=== PATIENT | male | born 1950 | race Two or more races ===

== ENCOUNTER 2019-07-01 14:07 | Emergency (ER) | payer MEDICARE, OTHER ==
[~2019-07-01] VITALS: Ht 177.8 cm; Wt 99.8 kg
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
--- NOTE | 2019-07-01 14:20 | NUR ---
SEEN AND EXAMINED BY .
--- NOTE | 2019-07-01 14:25 | NUR ---
IV LINE ESTABLISHED BLOOD DRAWN AND SENT TO LAB.
[2019-07-01 14:34] LABS: BASOPHILS # (AUTO) 0.1 /CMM (0.0-0.2); BASOPHILS % (AUTO) 0.7 % (0.0-2.0); EOSINOPHILS % (AUTO) 1.6 % (0.0-6.0); HEMATOCRIT 38 % (39-51); HEMOGLOBIN 12.6 g/dL (13.5-17.5); LYMPHOCYTES # (AUTO) 3.1 /CMM (0.8-4.8); LYMPHOCYTES % (AUTO) 31.1 % (20.0-44.0); MEAN CORPUSCULAR HGB CONC 33 g/dl (31.0-36.0); MEAN CORPUSCULAR VOLUME 83 fL (80-96); MONOCYTES # (AUTO) 0.9 /CMM (0.1-1.30); MONOCYTES % (AUTO) 9.4 % (2.0-12.0); NEUTROPHILS # (AUTO) 5.7 /CMM (1.8-8.9); NEUTROPHILS % (AUTO) 57.2 % (43.0-81.0); PLATELET COUNT (AUTO) 258 /CMM (150-450); RED BLOOD CELL COUNT(AUTO) 4.58 MIL/uL (4.5-6.0)
[2019-07-01] MEDS ORDERED: FENTANYL PF 100MCG/2ML AMPUL ONE (14:43)
[2019-07-01] MEDS ORDERED: ONDANSETRON HCL/PF 4 MG/2 ML VIAL ONE (14:43)
[2019-07-01 14:44] LABS: CALCIUM, SERUM 9.3 mg/dL (8.5-10.1); CARBON DIOXIDE 31 mmol/L (21-32); CHLORIDE 100 mmol/L (98-107); CREATININE 1.1 mg/dL (0.6-1.3); GLUCOSE 146 mg/dL (74-106); POTASSIUM 3.4 mmol/L (3.5-5.1); SODIUM SERUM 141 mmol/L (136-145); UREA NITROGEN, BLOOD 14 mg/dL (7-18)
--- NOTE | 2019-07-01 14:45 | NUR ---
[employer] AT BEDSIDE.
[2019-07-01 14:50] LABS: ALANINE AMINOTRANSFERASE 30 U/L (12-78); ALBUMIN 4.1 g/dL (3.4-5.0); ALKALINE PHOSPHATASE 77 U/L (46-116); ASPARTATE AMINOTRANSFERASE 20 U/L (15-37); BILIRUBIN,TOTAL 0.8 mg/dL (0.2-1.0); LIPASE 166 U/L (73-393); TOTAL PROTEIN, SERUM 7.9 g/dL (6.4-8.2)
[2019-07-01] MEDS ORDERED: IV NS 0.9% 250 ML IV ONE (14:55)
[2019-07-01] MEDS ORDERED: IOHEXOL-300 100 ML VIAL IV ONE (14:55)
[2019-07-01] MEDS ORDERED: CT SWABBABLE VALVE TRANS SET 1 EA INFUS.SET MC ONE (14:55)
[2019-07-01] MEDS ORDERED: ONDANSETRON HCL/PF - ER 4 MG/2 ML VIAL IV ONE (15:00)
[2019-07-01] MEDS ORDERED: FENTANYL PF 100MCG/2ML AMPUL IV ONE (15:00)
--- NOTE | 2019-07-01 15:05 | NUR ---
PT IS WHEELED TO CT SCAN VIA [facility].
[2019-07-01] MEDS ORDERED: CLOP75TA15 PO (15:23)
[2019-07-01] MEDS ORDERED: FERR325T23 PO (15:23)
[2019-07-01] MEDS ORDERED: FAMO-131 PO (15:23)
[2019-07-01] MEDS ORDERED: IRBE300T19 PO (15:23)
[2019-07-01] MEDS ORDERED: ICOS1CAP PO (15:23)
[2019-07-01] MEDS ORDERED: ASPI-992 PO (15:23)
[2019-07-01] MEDS ORDERED: SERT50TA12 PO (15:23)
[2019-07-01] MEDS ORDERED: POTA15TA11 PO (15:23)
[2019-07-01] MEDS ORDERED: DULA1.5P SQ (15:23)
[2019-07-01] MEDS ORDERED: EMPA25TA PO (15:23)
[2019-07-01] MEDS ORDERED: ATOR40TA PO (15:23)
[2019-07-01] MEDS ORDERED: METF-442 PO (15:23)
[2019-07-01] MEDS ORDERED: VITA1TAB56 PO (15:23)
[2019-07-01] MEDS ORDERED: METO-358 PO (15:23)
[2019-07-01] MEDS ORDERED: HYDR25TA4 PO (15:23)
--- NOTE | 2019-07-01 16:45 | NUR ---
[facility] AT BEDSIDE FOR REPEAT TROPONIN.
[2019-07-01] MEDS ORDERED: HYDROCODONE/APAP 10/325MG 1 EA TABLET PO ONE (17:00)
[2019-07-01] MEDS ORDERED: HYDROCODONE/APAP 10/325MG 1 EA TABLET ONE (17:00)
[2019-07-01] MEDS ORDERED: POTASSIUM CHLORIDE 20 MEQ TAB.PRT.SR PO ONE ×2 (17:00→17:04)
--- NOTE | 2019-07-01 17:10 | NUR ---
LEONIE WRAP AND CRUTCHES PROVIDED BY [employer].
[2019-07-01 17:22] VITALS: BP 141/77
--- NOTE | 2019-07-01 17:22 | NUR ---
IV removed. Catheter intact and site benign. Pressure and 4x4 applied to site. No bleeding noted. Patient discharged to home in stable condition. Written and verbal after care instructions given. Patient verbalizes understanding of instruction.
== END 2019-07-01 17:26 | disposition home or self-care (01) ==
LOC: ER 14:13
DX: S16.1XXA Strain of muscle, fascia and tendon at neck level, initial encounter (principal); S20.211A Contusion of right front wall of thorax, initial encounter; S80.02XA Contusion of left knee, initial encounter; I25.10 Atherosclerotic heart disease of native coronary artery without angina pectoris; I10 Essential (primary) hypertension; E87.6 Hypokalemia; R51 Headache; I25.2 Old myocardial infarction; Z95.5 Presence of coronary angioplasty implant and graft; Z79.899 Other long term (current) drug therapy; Z79.82 Long term (current) use of aspirin; V49.49XA Driver injured in collision with other motor vehicles in traffic accident, initial encounter; Y93.89 Activity, other specified; Y92.488 Other paved roadways as the place of occurrence of the external cause; Y99.8 Other external cause status
CPT/HCPCS: 36415; 70450; 71045; 71260; 72125; 73564; 80053; 83690; 84484 ×2; 85025; 85610; 85730; 93005 ×3; 96374; 96375; 99285; J2405; J3010; J7050; Q9967